=== PATIENT | female | born 1995 | race Caucasian/White ===

== ENCOUNTER 2019-07-09 22:03 | Inpatient (IN) | payer OTHER ==
[~2019-07-09] VITALS: Ht 157.5 cm; Wt 66.7 kg
[2019-07-09] MEDS ORDERED: PRENATAL TABLE1 EAC1 PO (22:05)
== END 2019-07-12 17:32 | disposition home or self-care (01) | DRG 807 ==
LOC: LDR 22:03 → OB/GYN 22:03 → LDR 22:04 → OB/GYN 07-10 05:30
PROVIDERS: ADMIT Obstetrics & Gynecology
PROC: 4A1HXCZ Monitoring of Products of Conception, Cardiac Rate, External Approach (ICD-10-PCS; 2019-07-09)
PROC: 10E0XZZ Delivery of Products of Conception, External Approach (ICD-10-PCS; principal; 2019-07-10)
PROC: 4A033R1 Measurement of Arterial Saturation, Peripheral, Percutaneous Approach (ICD-10-PCS; 2019-07-10)
DX: O80 Encounter for full-term uncomplicated delivery (principal); Z37.0 Single live birth; Z3A.39 39 weeks gestation of pregnancy